=== PATIENT | female | born 1950 | race Caucasian/White ===

== ENCOUNTER 2022-09-12 05:31 | Outpatient (CLI) | payer BC, MEDICARE ==
[~2022-09-12] VITALS: Ht 160 cm; Wt 78.6 kg
[2022-09-13] MEDS ORDERED: OMEP40CA6 PO (15:52)
[2022-09-13] MEDS ORDERED: LEVO25CA4 PO (15:52)
[2022-09-13] MEDS ORDERED: METF-865 PO (15:52)
[2022-09-13] MEDS ORDERED: LOTE5DRO OP (15:52)
[2022-09-13] MEDS ORDERED: HYDR12.56 PO (15:52)
[2022-09-13] MEDS ORDERED: METO50TA7 PO (15:52)
[2022-09-19] MEDS ORDERED: ACHD5005 PO (08:18)
[2022-09-19] MEDS ORDERED: IBUP-1773 PO (08:18)
== END 2022-09-13 15:53 | disposition home or self-care (01) ==
LOC: PREOP 05:31
PROVIDERS: ATTEND Obstetrics & Gynecology
DX: Z01.818 Encounter for other preprocedural examination (principal)

== ENCOUNTER 2022-09-19 06:33 | Day surgery (SDC) | payer BC, MEDICARE ==
[2022-09-19] VITALS (11 sets, daily range): BP systolic 122–157; BP diastolic 59–78
[~2022-09-19] VITALS: Ht 160 cm; Wt 78.6 kg
[~2022-09-19 06:33] MED LIST: HYDR12.56 PO; LEVO25CA4 PO; LOTE5DRO OP; METF-865 PO; METO50TA7 PO; OMEP40CA6 PO
[2022-09-19 07:09] LABS: BASOPHILS % (AUTO) 1 % (0-10); EOSINOPHILS # (AUTO) 0.1 10^3/uL (0.0-0.3); EOSINOPHILS % (AUTO) 2 % (0-10); HEMATOCRIT 42 % (35-52); HEMOGLOBIN 14.5 g/dL (11.5-16.0); LYMPHOCYTES # (AUTO) 1.1 10^3/uL (1.0-4.0); LYMPHOCYTES % (AUTO) 21 % (12-44); MEAN CORPUSCULAR HEMOGLOBIN 30 pg (25-34); MEAN CORPUSCULAR HGB CONC 35 g/dL (32-36); MEAN CORPUSCULAR VOLUME 84 fL (80-99); MEAN PLATELET VOLUME 9.4 fL (9.0-12.2); MONOCYTES # (AUTO) 0.5 10^3/uL (0.0-1.0); MONOCYTES % (AUTO) 9 % (0-12); NEUTROPHILS # (AUTO) 3.6 10^3/uL (1.8-7.8); NEUTROPHILS % (AUTO) 67 % (42-75); PLATELET COUNT 308 10^3/uL (130-400); WHITE BLOOD COUNT 5.3 10^3/uL (4.3-11.0)
[2022-09-19] MEDS ORDERED: NS (IVPB) 100 ML ONE ×2 (07:10→08:56)
[2022-09-19] MEDS ORDERED: ESTROGENS CONJ. CREAM 30 GM (PREMARIN) TUBE ONE (07:10)
[2022-09-19] MEDS ORDERED: VASOPRESSIN INJECTION 20 UNIT/ML VIAL ONE ×2 (07:10→08:56)
[2022-09-19] MEDS: LACTATED RINGERS 1,000 ML IV PRN ×2 (07:26→09:05)
--- NOTE | 2022-09-19 08:11 | Progress Note-Pre Operative ---
Pre-Operative Progress Note Date of Available H&P: Sep 19, 2022 Date H&P Reviewed: Sep 19, 2022 Time H&P Reviewed: 08:00 History & Physical: H&P Reviewed, Patient Examed, No changes noted Pre-Operative Diagnosis: Cystocele and Rectocele SAMMY RODIRGUEZ DO Sep 19, 2022 08:11
[2022-09-19] MEDS ORDERED: MIDAZOLAM 2 MG/2 ML (VERSED) VIAL ONE (08:15)
[2022-09-19] MEDS ORDERED: ONDANSETRON 4 MG/2 ML (SDV) Z0FRAN IV PRN (08:15)
[2022-09-19] MEDS ORDERED: CEPACOL SORE THROAT-COUGH LOZENGE MM PRN (08:15)
[2022-09-19] MEDS ORDERED: HYDROmorphone 2 MG/ML VIAL (DILAUDID) IV PRN (08:15)
[2022-09-19] MEDS ORDERED: SIMETHICONE 80 MG (MYLICON) CHEW PO PRN (08:15)
[2022-09-19] MEDS ORDERED: HYDROcodone/APAP 5 MG/325 MG (LORTAB) TAB PO PRN (08:15)
[2022-09-19] MEDS ORDERED: ZOLPIDEM 5 MG (AMBIEN) TAB PO PRN (08:15)
[2022-09-19] MEDS ORDERED: DOCUSATE SODIUM 100 MG (COLACE) CAP PO PRN (08:15)
[2022-09-19] MEDS ORDERED: ANTACID SUSP 30 ML UDC (MYLANTA) PO PRN (08:15)
--- NOTE | 2022-09-19 08:15 | Discharge Inst-Women's Service ---
Discharge Inst-Women's Serv Depart Medication/Instructions New, Converted or Re-Newed RX: Transmitted to Pharmacy Problems Reviewed?: Yes Consults/Follow Up Additional Follow Up: Yes Orders/Referrals Dr. Rodriguez in 5-6 weeks Activity Activity: Activity as Tolerated Driving Instructions: No Driving for 1 Week NO SMOKING: NO SMOKING Nothing Inside Vagina: No Douching, No Leando, No Tampons Diet Discharge Diet: No Restrictions Symptoms to Report to : Bleeding Excessive, Pain Increased, Fever Over 101 Degrees F, Vaginal Bleeding Increase, Questions/Concerns For Any Problems or Questions: Contact Your Physician SAMMY RODRIGUEZ DO Sep 19, 2022 08:15
[2022-09-19] MEDS ORDERED: fentaNYL INJ 100 MCG/2 ML AMP ONE (08:17)
[2022-09-19] MEDS ORDERED: ACHD5005 PO (08:18)
[2022-09-19] MEDS ORDERED: IBUP-1773 PO (08:18)
[2022-09-19] MEDS ORDERED: metFORMIN XR 500 MG (GLUCOPHAGE XR) TAB PO SCH (09:00)
[2022-09-19] MEDS ORDERED: NON-FORMULARY MEDICATION 1 EA EA (Omeprazole 40 MG) PO SCH (09:00)
[2022-09-19] MEDS ORDERED: VASOPRESSIN INJECTION 20 UNIT/ML VIAL INJ ONE (09:03)
[2022-09-19] MEDS ORDERED: NS 100 ML (IVPB) BAG INJ ONE (09:05)
[2022-09-19] MEDS ORDERED: ESTROGENS CONJ. CREAM 30 GM (PREMARIN) TUBE VG ONE (09:06)
[2022-09-19] MEDS ORDERED: ONDANSETRON 4 MG/2 ML (SDV) Z0FRAN ONE (09:33)
[2022-09-19] MEDS ORDERED: LIDOCAINE PF 2% 5 ML (XYLOCAINE) VIAL ONE (09:33)
[2022-09-19] MEDS ORDERED: proPOfol 200 MG/20 ML (DIPRIVAN) VIAL IV ONE (09:33)
[2022-09-19] MEDS ORDERED: SEVOFLURANE (ULTANE) 15 ML INHAL SOLN ONE (09:33)
[2022-09-19] MEDS ORDERED: KETOROLAC 30 MG/ML VIAL ONE (09:45)
[2022-09-19] MEDS ORDERED: morphine INJ 10 MG/ML 1ML (SYR OR VIAL) ONE (09:51)
[2022-09-19] MEDS: morphine INJ 10 MG/ML 1ML (SYR OR VIAL) IVP ONE ×2 (09:53→10:06)
[2022-09-19] MEDS ORDERED: HYDROmorphone 2 MG/ML VIAL (DILAUDID) IV ONE (10:00)
[2022-09-19] MEDS ORDERED: ONDANSETRON 4 MG/2 ML (SDV) Z0FRAN IVP PRN (10:00)
[2022-09-19] MEDS ORDERED: PROMETHAZINE INJ 25 MG/ML (PHENERGAN) AMP IVP ONE (10:00)
--- NOTE | 2022-09-19 10:00 | Anesthesia-General Post-Op ---
General Patient Condition Mental Status/LOC: Same as Preop Cardiovascular: Satisfactory Nausea/Vomiting: Absent Respiratory: Satisfactory Pain: Controlled Complications: Absent Post Op Complications Complications None Follow Up Care/Instructions Patient Instructions None needed. Anesthesia/Patient Condition Patient Condition Patient is doing well, no complaints, stable vital signs, no apparent adverse anesthesia problems. No complications reported per nursing. DEEPTI CARRILLO CRNA Sep 19, 2022 10:00
[2022-09-19] MEDS: LACTATED RINGERS 1,000 ML IV SCH ×2 (14:18→23:15)
[2022-09-19] MEDS: KETOROLAC 30 MG/ML VIAL IVP PRN (16:13)
--- NOTE | 2022-09-19 16:26 | OPERATIVE REPORT ---
DATE OF SERVICE: 09/19/2022 PREOPERATIVE DIAGNOSIS: A 72-year-old female with pelvic organ prolapse, cystocele grade 2, rectocele, grade 3. POSTOPERATIVE DIAGNOSIS: A 72-year-old female with pelvic organ prolapse, cystocele grade 2, rectocele, grade 3. PROCEDURE: Anterior colporrhaphy and posterior colporrhaphy with perineoplasty. SURGEON: Christiano Vanegas MD ANESTHESIA: General endotracheal. ESTIMATED BLOOD LOSS: 150 mL URINE OUTPUT: 400 mL clear at the end of the procedure. FLUIDS: 1300 mL lactated Ringer's solution. FINDINGS: Grade 2-3 cystocele with a grade 3 rectocele, loss of apical support of the vagina, grossly normal-appearing external female genitalia, otherwise. SPECIMENS SENT: None. INDICATIONS FOR PROCEDURE: A 72-year-old female patient had sought care in my office for ongoing issues with pelvic organ prolapse. She had difficulty with bowel movements as well and urinary leakage and ability to drain her bladder at times. I discussed with the patient anterior and posterior colporrhaphy and a perineoplasty and the long-term benefits of this versus the risk of the procedure in detail. We also discussed pessary placement. The patient wishes to proceed with anterior and posterior repair. Risks of the procedure were discussed with the patient in detail including risk of bleeding, infection, damage to internal structures including but not limited to bowel, bladder, ureter or kidney, possible need for reoperation, risk of breakdown over time and need for secondary repair down the line, risk from anesthesia and postoperative care and precautions to use after this procedure is done. After all of her questions were answered, consent was obtained preoperatively. The patient was taken to the operating room. REPORT IN DETAIL: Once in the operating room, anesthesia found to be adequate, was placed in dorsal lithotomy position, prepped and draped in normal sterile fashion. A timeout was performed. A Nnuez catheter was placed using sterile technique. A weighted speculum was inserted into the patient's vagina where I am able to address the cystocele first. The submucosa of the defect of the cystocele are infiltrated using vasopressin and a concentration of 20 units in 100 mL of normal saline. Once all the margin of this are infiltrated in the submucosa until they are able to appreciate blanching of the mucosa. I then make a transverse incision at the bladder neck through the mucosa and submucosa and then do a midline undermining dissection using Metzenbaum scissors all the way down the midline of the defect and this was incised using the Metzenbaum scissors. I then grasped the lateral aspects of the mucosa and submucosa, lift them upward and dissect the underlying vesicovaginal fascia. I do this down the planes of both defects, at which point I then placed plicating sutures of 0 Vicryl suture, plicating and reducing the cystocele as I go using the vesicovaginal fascia as my reinforcement and plication marker. Once that is reduced, I then trimmed the excess vaginal mucosa. I then reapproximated the mucosa using 3-0 Vicryl suture in a running locked fashion, after which there was no active bleeding noted from the anterior colporrhaphy repair. I then take my attention to the posterior colporrhaphy where in similar fashion, I infiltrate all the margins of the subcutaneous and submucosa defect using the same concentration of vasopressin. Once adequate blanching was noted of all the tissue, I began by making a triangular incision down the perineum to the point at the midline and dissect the underlying cutaneous tissue and subcutaneous tissue, leaving a triangular defect on the perineal body. I then undermined down the vaginal mucosa down the midline of the rectocele and then incised down the midline of the rectocele using the Metzenbaum scissors as well. I then grasped the lateral aspects of the vaginal incision, tented up and dissected off the underlying rectovaginal fascia. This was done to the lateral margins of the defect, at which point I plicate these lateral margins back together using 0 Vicryl suture in interrupted fashion. The apex, I used a pursestring suture due to a small enterocele defect, reducing the enterocele as well. I then trimmed the excess vaginal mucosa and reapproximate the mucosa using a 3-0 Vicryl suture in a running locked fashion to the margin of the mucocutaneous junction, at which point I reapproximated the subcutaneous tissue and subcuticular tissue using 3-0 Vicryl suture in a running fashion. The vagina was then packed using Premarin-soaked vaginal packing. Nunez catheter was left in place. The patient tolerated the procedure well and was taken to recovery room in stable condition. Lap and sponge counts were correct at the end of the procedure. Job ID: [id number] DocumentID: [id number] Dictated Date: 09/19/2022 10:11:12 [employer] Work[employer] Date: 09/19/2022 16:24:00 Dictated By: DO HARIKA DÍAZ
[2022-09-19] MEDS ORDERED: ACETAMINOPHEN 500 MG TAB (TYLENOL) ONE (20:59)
[2022-09-19] MEDS ORDERED: LEVOTHYROXINE 25 MCG (LEVOTHROID) TAB PO SCH (21:00)
[2022-09-19] MEDS ORDERED: ACETAMINOPHEN 500 MG TAB (TYLENOL) PO ONE (21:00)
[2022-09-20] VITALS: BP 120/57
[2022-09-20 04:09] VITALS: BP 134/69
[2022-09-20 08:15] VITALS: BP 124/63
[2022-09-20] MEDS: KETOROLAC 30 MG/ML VIAL IVP PRN (08:27)
[2022-09-20] MEDS ORDERED: PANTOPRAZOLE 40 MG (PROTONIX) TAB PO SCH (09:00)
[2022-09-20] MEDS ORDERED: HydroCHLOROthiazide CAP/TABLET 12.5 MG TAB PO SCH (09:00)
[2022-09-20 10:45] VITALS: BP 124/63
== END 2022-09-20 10:45 | disposition home or self-care (01) ==
LOC: SDC 06:33 → WS 10:11 → SDC 09-20 10:45
PROVIDERS: ATTEND Obstetrics & Gynecology
DX: N81.11 Cystocele, midline (principal); N81.6 Rectocele; N81.5 Vaginal enterocele; N81.89 Other female genital prolapse; K21.9 Gastro-esophageal reflux disease without esophagitis; E66.9 Obesity, unspecified; Z68.30 Body mass index [BMI] 30.0-30.9, adult
CPT/HCPCS: 36415; 82947; 85025; 86850; 86900; 86901; 87081; 94664